=== PATIENT | female | born 2000 | race Caucasian/White ===

== ENCOUNTER 2024-08-24 17:05 | Emergency (ER) | payer OTHER ==
[~2024-08-24] VITALS: Ht 149.8 cm; Wt 65.8 kg
[2024-08-24] MEDS ORDERED: Tdap Vaccine 0.5 ML SYR (Adult Vaccine) IM ONE (18:00)
[2024-08-24] MEDS ORDERED: Lidocaine Hydrochloride 2% 10 ML AMP SC ONE (18:10)
[2024-08-24] MEDS ORDERED: CEPHALEXIN 500 MG CAP PO ONE (18:10)
[2024-08-24] MEDS ORDERED: Bacitracin Zinc 14 GM TUBE T ONE (18:10)
[2024-08-24] MEDS ORDERED: Acetaminophen/Hydrocodone 5 MG/325 MG TABLET PO ONE (19:50)
[2024-08-24] MEDS ORDERED: CEPHALEXIN500 M1 PO (20:01)
== END 2024-08-24 20:16 | disposition home or self-care (01) ==
LOC: ED 17:05
DX: S61.213A Laceration without foreign body of left middle finger without damage to nail, initial encounter (principal); Z88.1 Allergy status to other antibiotic agents; W23.0XXA Caught, crushed, jammed, or pinched between moving objects, initial encounter; Y93.89 Activity, other specified; Y92.89 Other specified places as the place of occurrence of the external cause; Y99.8 Other external cause status

== ENCOUNTER → 2024-10-28 | Outpatient (CLI) | payer OTHER ==
[~2024-10-28] MED LIST: CEPHALEXIN500 M1 PO
== END ==
LOC: US 16:00
PROVIDERS: ATTEND Nurse Practitioner Women's Health
DX: Z32.01 Encounter for pregnancy test, result positive (principal)